=== PATIENT | female | born 1960 | race Caucasian/White ===

== ENCOUNTER 2023-01-19 12:23 | Inpatient (IN) | payer MEDICARE, MEDICAID, SELFPAY ==
[2023-01-19] VITALS (15 sets, daily range): BP systolic 98–112; BP diastolic 40–67; PULSE 90–110; RESP 14–20; TEMP 36.4–36.9; O2SAT 90–96; BMI 57.9
--- NOTE | ~2023-01-19 | XR_ITS ---
EXAMINATION: XR chest 1V portable DATE: 01/19/2023 13:25 INDICATION: Lung infection. TECHNIQUE: A single frontal view of the chest was obtained. COMPARISON: Chest 2 views 12/17/2009 FINDINGS: The patient is rotated to her right. There are mild airspace opacities in right lower lung zone. No pleural effusion or pneumothorax. The heart size is normal. There are old healed right rib f ractures. IMPRESSION: 1. Mild airspace opacities in right lower lung zone, consistent with atelectasis/scarring versus pneu monia. Reviewed, dictated and finalized at location A. BODY SERVICE MECHANIC IMPRESSION: 1. Mild airspace opacities in right lower lung zone, consistent with atelectasi s/scarring versus pneumonia.
--- NOTE | 2023-01-19 12:50 | ED.GENADULT ---
HPI - General Adult General Chief complaint: Unspecified <Charo Allen APRN - Last Filed: 01/19/23 18:11> Stated complaint: bladder/lung infection <Charo Allen APRN - Last Filed: 01/19/23 18:11> Time Seen by Provider: 01/19/23 12:49 <Charo Allen APRN - Last Filed: 01/19/23 18:11> Source: patient and EMS <Charo Allen APRN - Last Filed: 01/19/23 18:11> Mode of arrival: EMS <Charo Allen APRN - Last Filed: 01/19/23 18:11> Limitations: physical limitation and other (hearing impairment ) <Charo Allen APRN - Last Filed: 01/19/23 18:11> History of Present Illness HPI narrative: Patient is a 62 year-old female who presents emergency department the EMS for evaluation having a UTI as well as concerns of pneumonia. her PCP sent her here after getting a urine sample yesterday. The patient states that she has had a productive cough. She has intermittent shortness of breath and pains in her chest even when just lying down she states. She denies any fever or chills. She states she takes pain medication chronically for an injury to her lower leg in the past where she has a scar. She states that she does not typically walk around but she does currently have therapy coming. She is living with her daughter. Denies any known exposure to any illness. She states that it just started the burning when she was urinating today. She denies any dizziness. She states she is very hard of hearing. she denies any history of heart failure. she states she broke out in a rash with PCN. however she has tolerated keflex before. <Charo Allen APRN - Last Filed: 01/19/23 18:11> Related Data Allergies/adverse reactions: Allergies Allergy/AdvReac Type Severity Reaction Status Date / Time adhesive Allergy Mild RASH WITH Unverified 01/19/23 12:42 BANDAIDS AND TAPE ketorolac Allergy Mild CHEST PAIN Unverified 01/19/23 12:42 benzalkonium Allergy Unknown Unknown Unverified 01/19/23 12:42 cyclobenzaprine Allergy Unknown Unknown Verified 01/19/23 12:42 doxycycline Allergy Unknown Unknown Verified 01/19/23 12:42 Penicillins Allergy Unknown Unknown Verified 01/19/23 12:42 Sulfa (Sulfonamide Allergy Unknown Unknown Verified 01/19/23 12:42 Antibiotics) sulfanilamide Allergy Unknown Unknown Verified 01/19/23 12:42 tramadol Allergy Unknown Unknown Unverified 01/19/23 12:42 Molds and Smuts Allergy Intermediate SNEEZING Uncoded 01/19/23 12:42 CYCLOBENZAPRINE HCL Allergy Mild Unknown Uncoded 01/19/23 12:42 Egg Yolk Allergy Mild Unknown Uncoded 01/19/23 12:42 <Charo Allen APRN - Last Filed: 01/19/23 18:11> Review of Systems Review of Systems: CONSTITUTIONAL: Denies fever, chills, or sweats. EYES: Denies visual changes, redness, or discharge. ENT: Denies rhinorrhea, congestion, sore throat, or otalgia. CARDIOVASCULAR: +chest pain intermittently. denies palpitations, or edema. RESPIRATORY: +cough, dyspnea. GASTROINTESTINAL: Denies abdominal pain, nausea, vomiting, or diarrhea. GENITOURINARY: +dysuria. denies hematuria. SKIN: Denies rash or itching. MUSCULOSKELETAL: +chronic leg pain. Denies back pain, or myalgia. NEUROLOGIC: Denies headache, numbness, or weakness. PSYCHIATRIC: Denies anxiety or depression. patient is a poor historian however <Charo Allen APRN - Last Filed: 01/19/23 18:11> All systems reviewed & are unremarkable except as noted in HPI and below <Charo Allen APRN - Last Filed: 01/19/23 18:11> [facility] Past Medical History Medical History: Medical History Anxiety Chronic anticoagulation Chronic back pain Chronically on opiate therapy Hypothyroidism Pulmonary embolism <Charo Allen APRN - Last Filed: 01/19/23 18:11> Surgical History Surgical History: Surgical History History of bariatric surgery <Charo Allen, DUNCAN - Last Fi
[2023-01-19 13:21] LABS: Basophils Percent Auto 0.3 % (0.2-1.2); Eosinophils Absolute Auto 0.4 K/mm3 (0-0.3); Eosinophils Percent Auto 3.4 % (0-4.4); Hematocrit 37.4 % (37.0-47.0); Hemoglobin 11.2 g/dL (12.0-15.0); Immature Granulocyte Absolute 0.05 K/mm3 (0.00-0.031); Immature Granulocyte Percent A 0.5 % (0-0.5); Lymphocytes Absolute Auto 2.36 K/mm3 (0.9-3.2); Lymphocytes Percent Auto 22.3 % (18.3-44.2); Mean Corpuscular HGB Conc 29.9 g/dl (32-36); Mean Corpuscular Hemoglobin 27.2 pg (26-34); Mean Corpuscular Volume 90.8 fl (80-100); Mean Platelet Volume 11.4 fl (7.4-10.4); Monocytes Absolute Auto 0.9 K/mm3 (0.1-0.6); Monocytes Percent Auto 8.8 % (2.6-8.5); Neutrophils Absolute Auto 6.8 K/mm3 (1.3-6.7); Neutrophils Percent Auto 64.7 % (45.5-73.1); Platelet Count Result 285 k/mm3 (150-375); Red Blood Count 4.12 M/mm3 (4.2-5.4); Red Cell Distribution Width 17.8 % (11.5-14.5); White Blood Count 10.6 K/mm3 (4.5-10.0)
[2023-01-19 13:27] LABS: Appearance Urine Turbid (Clear); Bacteria Urine 4+ /hpf; Bilirubin Urine Negative (Negative); Blood Urine 1+ (Negative); Color Urine Dark Yellow (Yellow); Glucose Urine UA Negative (Negative); Ketones Urine Negative (Negative); Leukocyte Esterase Ur 3+ LEU/UL (Negative); Nitrate Urine Negative (Negative); Non Pathogenic Casts 0-2; Protein Urine Trace mg/dL (Negative); RBC Urine 0-2 /hpf (0-2); Specific Grav Ur 1.008 (1.001-1.035); Squamous Epithelial Cell Urine None seen /hpf (Few); pH Urine 8.5 (5.0-9.0)
[2023-01-19 13:30] LABS: Alanine Aminotransferase 26 U/L (6-35); Albumin Level 3.1 g/dL (3.5-5.1); Alkaline Phosphatase 178 U/L (38-126); Anion Gap 4 mmol/L (8-16); Aspartate Amino Transferase 64 U/L (14-36); Bilirubin,Total 0.8 mg/dL (0.2-1.3); Blood Urea Nitrogen 12 mg/dL (7-17); Calcium 8.6 mg/dL (8.4-10.2); Carbon Dioxide 38 mmol/L (22-30); Chloride 83 mmol/L (98-107); Estimated CRCL calculation 117 ml/min; Estimated Glomerular Filt Rate > 60; Glucose 149 mg/dL (65-110); Potassium 3.8 mmol/L (3.4-5.0); Sodium 125 mmol/L (137-145)
[2023-01-19 13:33] LABS: Add Urine Microscopic? YES
[2023-01-19 13:43] LABS: Atypical Lymphocytes Present; Hypochromasia 1+ (NORMAL); Platelet Estimate Adequate (Adequate); Schistocytes None Seen (NORMAL)
[2023-01-19 14:31] LABS: Lactic Acid Reflex 2.5 mmol/L (0.7-2.0)
[2023-01-19 15:25] LABS: Procalcitonin 0.3 ng/mL
--- NOTE | 2023-01-19 15:32 | ECG_ITS ---
Measurements Intervals [place] Rate: 95 P: 66 NE: 174 QRS: 57 QRSD: 95 T: 70 QT: 384 QTc: 484 Interpretive Statements SINUS RHYTHM NORMAL EKG NO PREVIOUS ECG AVAILABLE FOR COMPARISON Electronically Signed On 01-20-2023 13:48:30 LINTER OPERATOR by Basil Santoyo M.D.
[2023-01-19] MEDS: SODIUM CHLORIDE 0.9% IV 1,000 ML 100 ML IV CONT (15:46)
[2023-01-19] MEDS: AZITHROMYCIN 500 MG/NS 250 ML 500 MG/250 ML BAG 250 MG IVPB (16:44)
--- NOTE | 2023-01-19 16:50 | PC.NURSE ---
External catheter placed on patient.
[2023-01-19 17:04] LABS: Magnesium 2.3 mg/dL (1.6-2.3); Phosphorus 3.4 mg/dL (2.5-4.5)
--- NOTE | 2023-01-19 17:08 | PM.IMHP ---
H&P: HPI History of Present Illness Date/Time: 01/19/23 17:30 Chief Complaint: Bladder and lung infection. Narrative: This is a pleasant, chronically debilitated 62-year-old female smoker with history of pulmonary embolism on anticoagulation, chronic obstructive pulmonary disease, hypothyroidism, neuropathy, and anxiety who presented to the emergency department via EMS at the direction of her primary care provider for treatment of bladder and lung infection. The patient provides the following history. She endorses dysuria, subjective fever, nausea, vomiting, and a cough productive of white sputum for the last several days. She saw her doctor for evaluation of these symptoms yesterday and she was told to come to the ER today as her urine looked grossly infected and they were concerned that she had pneumonia as well. She was afebrile on arrival to the ED with stable blood pressures. Labs were significant for WBC count of 10.6, sodium 125, chloride 83, carbon dioxide 38, glucose 149, lactic acid 2.5, troponin less than 0.012, proBNP 75. Urine was turbid with 3+ leukocyte esterase, 11 to 20 WBC, and 4+ bacteria. She tested negative for influenza, RSV, and COVID. Chest x-ray showed mild airspace opacities in right lower lung zone consistent with atelectasis/scarring versus pneumonia. She received a dose of azithromycin and ceftriaxone and she is being admitted in this setting for further treatment and evaluation. Review of Systems Review of Systems: Twelve systems were reviewed. She has become chronically debilitated and is not really walking at this point however therapy has started to come into the home. She recently moved to the area to live with her daughter. She denies sick contacts. Reports having loose stools yesterday however those resolved after she took Imodium. No known history of multidrug resistant organisms. Except as documented, all other systems were reviewed and are negative. [facility] Past Medical History Medical History Anxiety Chronic anticoagulation Chronic back pain Chronic obstructive pulmonary disease Chronically on opiate therapy Hypothyroidism Pulmonary embolism Surgical History Surgical History History of bariatric surgery History of bunionectomy History of cholecystectomy History of open reduction and internal fixation (ORIF) procedure Repair left leg and right hip fractures. Family History Family History (Updated 01/19/23 @ 22:56 by Davina Luis PA-C) Other Family history non-contributory Social History Social History (Updated 01/19/23 @ 22:56 by Davina Luis PA-C) Social History: Surrogate medical decision maker: Alma Moya, daughter. Code status: Full code. Smoking status: Current every day smoker Alcohol intake: never Lack of Transportation: No Lack of Food: Never True Current Housing: I Have Housing Concerned About Future Housing: No Difficulty Paying Gas/Electric Bills: No Difficulty Paying for Meds: No Currently Unemployed: No Education: Decline to Answer Difficulty w/ Childcare or Family Care: Decline to Answer Spiritual care concerns: No Meds Home Medications and Allergies Home Medications Medication Instructions Recorded Confirmed Type apixaban 5 mg tablet (Eliquis) 5 mg PO BID 01/19/23 01/19/23 History budesonide-formoterol HFA 80 2 inh inhalation PRN PRN Shortness 01/19/23 01/19/23 History mcg-4.5 mcg/actuation aerosol Of Breath Or Wheezing inhaler (Symbicort) clonazepam 0.5 mg tablet 0.5 mg PO HS PRN Anxiety 01/19/23 01/19/23 History diphenhydramine HCl 25 mg tablet See Rx Instructions .Route 01/19/23 01/19/23 History .COMPLEX PRN Anxiety duloxetine 60 mg capsule,delayed 60 mg PO DAILY 01/19/23 01/19/23 History release gabapentin 800 mg tablet 800 mg PO TID 01/19/23 01/19/23 History levothyroxine 50 mc
[2023-01-19 17:15] LABS: Troponin I < 0.012 ng/mL (0.000-0.034)
[2023-01-19 17:20] LABS: Reflex Lactic Acid Yes or No Add Lactic
[2023-01-19 17:39] LABS: Influenza A QL RT-PCR Negative (Negative); Influenza B QL RT-PCR Negative (Negative); RSV RNA, RT-PCR Negative (Negative); SARS-CoV-2 RNA PCR Negative (Negative)
--- NOTE | 2023-01-19 18:13 | PC.NURSE ---
This patient, Serenity Moya, was admitted to [facility] Surg Room 330-02. Patient/family oriented to hospital policies and general routines including ID bracelet, bed and alarms, visiting hours, pain management, procedures, bathroom and other care routines, personal items, smoking policy, room service/diet, and visiting hours. Information on how to activate the Rapid Response Team has been discussed. Patient/Family are encouraged to report perceived risks to care and to ask questions if they do not understand what they are told or what they should do.
--- NOTE | 2023-01-19 18:14 | PC.NURSE ---
Admission was done to the best of RN abilities and resources. Patient states that she lives with her daughter and daughter does all of her medications for her. RN called daughter (patient gave RN her daughter's phone number). RN called number and number is not in service. RN looked up patient's contact list in chart and called [facility]. This number was also out of service. Patient is very hard of hearing. Patient states she did not bring any medications with her or a list nor does she knows any medications that she currently takes. RN will attempt to reach out to patient's pharmacy. RN explained to patient that these numbers are not in service. Patient responded with okay .
--- NOTE | 2023-01-19 18:36 | PC.NURSE ---
field gauger and RN reviewed external medication history and confirmed medications that were filled within the last 30 days. Tomorrow RN will need to call pharmacy or primary care and obtain medication list if possible.
--- NOTE | 2023-01-19 18:51 | PC.NURSE ---
RN spoke with daughter Brenda via telephone and confirmed medications with her.
[2023-01-19] MEDS: oxyCODONE/ACETAMINOPHEN (*CRX) 5-325 MG TABLET 1 TABLET PO (20:03)
[2023-01-19 21:35] LABS: Lactic Acid 1.5 mmol/L (0.7-2.0)
[2023-01-19 21:46] LABS: NT Pro B Type Natriuretic Pept 75 pg/mL (19.9-100)
[2023-01-19 23:11] LABS: Anion Gap 4 mmol/L (8-16); Blood Urea Nitrogen 13 mg/dL (7-17); Calcium 8.9 mg/dL (8.4-10.2); Carbon Dioxide 38 mmol/L (22-30); Chloride 87 mmol/L (98-107); Estimated CRCL calculation 104 ml/min; Estimated Glomerular Filt Rate > 60; Glucose 143 mg/dL (65-110); Potassium 3.6 mmol/L (3.4-5.0); Sodium 129 mmol/L (137-145)
[2023-01-20] VITALS (8 sets, daily range): BP systolic 88–117; BP diastolic 46–68; PULSE 82–109; RESP 12–22; TEMP 36.4–36.9; O2SAT 92–98
[2023-01-20] MEDS: APIXABAN 5 MG TABLET PO ×3 (00:18→21:13)
[2023-01-20] MEDS: traZODone HCL 50 MG TABLET PO ×2 (00:18→21:13)
[2023-01-20] MEDS: METOPROLOL TARTRATE 12.5 MG TABLET PO ×3 (00:18→21:13)
[2023-01-20] MEDS: OLANZapine 5 MG TABLET 20 MG PO ×2 (00:19→21:12)
[2023-01-20] MEDS: oxyCODONE/ACETAMINOPHEN (*CRX) 5-325 MG TABLET 1 TABLET PO (06:29)
[2023-01-20] MEDS: LEVOTHYROXINE SODIUM 50 MCG TABLET PO (06:29)
[2023-01-20 06:34] LABS: Hematocrit 36.4 % (37.0-47.0); Hemoglobin 10.6 g/dL (12.0-15.0); Mean Corpuscular HGB Conc 29.1 g/dl (32-36); Mean Corpuscular Hemoglobin 26.5 pg (26-34); Mean Platelet Volume 10.1 fl (7.4-10.4); Platelet Count Result 331 k/mm3 (150-375); Red Cell Distribution Width 18.1 % (11.5-14.5); White Blood Count 8.4 K/mm3 (4.5-10.0)
[2023-01-20 06:34] LABS: Sodium Urine Random 8 meq/L
[2023-01-20 06:45] LABS: Blood Urea Nitrogen 14 mg/dL (7-17); Calcium 8.9 mg/dL (8.4-10.2); Carbon Dioxide > 40 mmol/L (22-30); Chloride 88 mmol/L (98-107); Estimated CRCL calculation 83 ml/min; Estimated Glomerular Filt Rate 57; Glucose 134 mg/dL (65-110); Magnesium 2.2 mg/dL (1.6-2.3); Potassium 3.7 mmol/L (3.4-5.0); Sodium 131 mmol/L (137-145)
[2023-01-20] MEDS: TIZANIDINE HCL 4 MG TABLET PO (08:06)
[2023-01-20] MEDS: GABAPENTIN 400 MG CAPSULE 800 MG PO (08:07)
[2023-01-20] MEDS: DULoxetine HCL 60 MG CAPSULE.DR PO (08:07)
[2023-01-20] MEDS: ZINC SULFATE 220 MG CAPSULE PO (08:07)
[2023-01-20] MEDS: PANTOPRAZOLE 40 MG TABLET PO (08:07)
--- NOTE | 2023-01-20 08:17 | PM.IMPN ---
Progress Note: A&P Assessment and Plan (1) Hyponatremia: Code(s): E87.1 - Hypo-osmolality and hyponatremia Status: Acute (2) Urinary tract infection: Code(s): N39.0 - Urinary tract infection, site not specified Status: Acute (3) Abnormal chest x-ray: Code(s): R93.89 - Abnormal findings on diagnostic imaging of other specified body structures Status: Acute (4) Chronic obstructive pulmonary disease: Code(s): J44.9 - Chronic obstructive pulmonary disease, unspecified Status: Acute (5) Chronic anticoagulation: Code(s): Z79.01 - nursing home (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 of anticoagulants Status: Acute (6) Hypothyroidism: Code(s): E03.9 - Hypothyroidism, unspecified Status: Acute (7) Anxiety: Code(s): F41.9 - Anxiety disorder, unspecified Status: Acute (8) Chronically on opiate therapy: Code(s): Z79.891 - nursing home (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 of opiate analgesic Status: Acute Plan This is a pleasant, chronically debilitated 62-year-old female smoker with history of pulmonary embolism on anticoagulation, chronic obstructive pulmonary disease, hypothyroidism, neuropathy, and anxiety who presented to the emergency department via EMS at the direction of her primary care provider for treatment of bladder and lung infection. The patient provides the following history. She endorses dysuria, subjective fever, nausea, vomiting, and a cough productive of white sputum for the last several days. (1) Urinary tract infection: ?Code(s): N39.0 - Urinary tract infection, site not specified ?Status:?Acute ?Assessment and Plan: UA is positive for leukocyte esterase, 4+ bacteria, and 11 to 20 WBC. Continue ceftriaxone 1 g Q 24 hours pending urine culture. (2) Hyponatremia: ?Code(s): E87.1 - Hypo-osmolality and hyponatremia ?Status:?Acute ?Assessment and Plan: Baseline unclear she has not had labs drawn at this facility before. Looks a bit dry on exam thus she was started on normal saline in the ED. Does not appear volume overload by any means. Could be medication related or due to chronic pain as well. Check TSH, urine and serum osmolalities, and urine sodium. (3) Abnormal chest x-ray: ?Code(s): R93.89 - Abnormal findings on diagnostic imaging of other specified body structures ?Status:?Acute ?Assessment and Plan: Chest x-ray shows mild airspace opacities in the right lower lung which could be atelectasis/scarring versus pneumonia. Continue azithromycin 500 mg daily and ceftriaxone 1 g daily. Attempt sputum for culture and check urinary antigens as well as mycoplasma IgM. (4) Chronic obstructive pulmonary disease: ?Code(s): J44.9 - Chronic obstructive pulmonary disease, unspecified ?Status:?Acute ?Assessment and Plan: No evidence of acute exacerbation. Continue inhalers as prescribed. (5) Chronic anticoagulation: ?Code(s): Z79.01 - roasterman (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 of anticoagulants ?Status:?Acute ?Assessment and Plan: Continue apixaban 5 mg b.i.d. for history of pulmonary embolism. (6) Hypothyroidism: ?Code(s): E03.9 - Hypothyroidism, unspecified ?Status:?Acute ?Assessment and Plan: Continue levothyroxine and check TSH. (7) Chronically on opiate therapy: ?Code(s): Z79.891 - nursing home (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 of opiate analgesic ?Status:?Acute ?Assessment and Plan: Continue oxycodone 5-325 mg p.r.n. for chronic pain syndrome. (8) Anxiety: ?Code(s): F41.9 - Anxiety disorder, unspecified ?Status:?Acute ?Assessment and Plan: Continue duloxetine and p.r.n. clonazepam. Depending on how our sodium trans, may need to hold duloxetine. Subjective Date/time seen: 01/20/23 08:17 Interval history: I saw and examined patient today. Patient was somnolent, oriented, failed tired. Patient denies chest pain, abdomen pain nausea vomiting. Patient has
--- NOTE | 2023-01-20 13:54 | PCOTNOTE ---
Attempted to see pt. for occupational therapy evaluation. Pt. unable to consistently maintain alertness despite repeated attempts to arouse. Nursing aware and stated this has been consistent state of alertness for pt. all day and may be medication related. Following.
--- NOTE | 2023-01-20 14:29 | PCPTNOTE ---
Attempted PT evaluation, pt unarousable. PER OT: Nursing aware and stated this has been consistent state of alertness for pt. all day and may be medication related. Will follow.
[2023-01-20] MEDS: AZITHROMYCIN 500 MG/NS 250 ML 500 MG/250 ML BAG 250 MG IVPB (16:35)
[2023-01-20] MEDS: ACETAMINOPHEN 325 MG TABLET 650 MG PO (16:42)
[2023-01-20] MEDS: FLUTICASONE/SALMETEROL 45-21 MCG INHALER 1 PUFF 2 PUFF INHALATION (20:38)
[2023-01-21] VITALS (7 sets, daily range): BP systolic 97–105; BP diastolic 53–60; PULSE 77–91; RESP 14–20; TEMP 36.4–36.8; O2SAT 92–97; BMI 10.0
[2023-01-21] MEDS: ACETAMINOPHEN 325 MG TABLET 650 MG PO (03:50)
[2023-01-21] MEDS: LEVOTHYROXINE SODIUM 50 MCG TABLET PO (05:40)
[2023-01-21] MEDS: oxyCODONE/ACETAMINOPHEN (*CRX) 5-325 MG TABLET 1 TABLET PO (05:40)
[2023-01-21] MEDS: TIZANIDINE HCL 4 MG TABLET PO (07:59)
[2023-01-21] MEDS: GABAPENTIN 400 MG CAPSULE 800 MG PO (08:00)
[2023-01-21] MEDS: ZINC SULFATE 220 MG CAPSULE PO (08:00)
[2023-01-21] MEDS: METOPROLOL TARTRATE 12.5 MG TABLET PO (08:00)
[2023-01-21] MEDS: DULoxetine HCL 60 MG CAPSULE.DR PO (08:00)
[2023-01-21] MEDS: PANTOPRAZOLE 40 MG TABLET PO (08:00)
[2023-01-21] MEDS: APIXABAN 5 MG TABLET PO (08:00)
--- NOTE | 2023-01-21 08:47 | PM.IMPN ---
Progress Note: A&P Assessment and Plan (1) Hyponatremia: Code(s): E87.1 - Hypo-osmolality and hyponatremia Status: Acute (2) Urinary tract infection: Code(s): N39.0 - Urinary tract infection, site not specified Status: Acute (3) Abnormal chest x-ray: Code(s): R93.89 - Abnormal findings on diagnostic imaging of other specified body structures Status: Acute (4) Chronic obstructive pulmonary disease: Code(s): J44.9 - Chronic obstructive pulmonary disease, unspecified Status: Acute (5) Chronic anticoagulation: Code(s): Z79.01 - custodial (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 of anticoagulants Status: Acute (6) Hypothyroidism: Code(s): E03.9 - Hypothyroidism, unspecified Status: Acute (7) Anxiety: Code(s): F41.9 - Anxiety disorder, unspecified Status: Acute (8) Chronically on opiate therapy: Code(s): Z79.891 - custodial (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 of opiate analgesic Status: Acute Plan This is a pleasant, chronically debilitated 62-year-old female smoker with history of pulmonary embolism on anticoagulation, chronic obstructive pulmonary disease, hypothyroidism, neuropathy, and anxiety who presented to the emergency department via EMS at the direction of her primary care provider for treatment of bladder and lung infection. The patient provides the following history. She endorses dysuria, subjective fever, nausea, vomiting, and a cough productive of white sputum for the last several days. (1) Urinary tract infection: ?Code(s): N39.0 - Urinary tract infection, site not specified ?Status:?Acute ?Assessment and Plan: UA is positive for leukocyte esterase, 4+ bacteria, and 11 to 20 WBC. Continue ceftriaxone 1 g Q 24 hours E coli is growing from urine culture. Pending susceptibility (2) Hyponatremia: ?Code(s): E87.1 - Hypo-osmolality and hyponatremia ?Status:?Acute ?Assessment and Plan: Baseline unclear she has not had labs drawn at this facility before. Looks a bit dry on exam thus she was started on normal saline in the ED. Does not appear volume overload by any means. Could be medication related or due to chronic pain as well. Check TSH wnl, urine and serum osmolalities, and urine sodium. Add sodium chloride 1 g t.i.d. p.o. Sodium level is trending up, (3) Abnormal chest x-ray: ?Code(s): R93.89 - Abnormal findings on diagnostic imaging of other specified body structures ?Status:?Acute ?Assessment and Plan: Chest x-ray shows mild airspace opacities in the right lower lung which could be atelectasis/scarring versus pneumonia. Continue azithromycin 500 mg daily and ceftriaxone 1 g daily. Attempt sputum for culture and check urinary antigens as well as mycoplasma IgM. (4) Chronic obstructive pulmonary disease: ?Code(s): J44.9 - Chronic obstructive pulmonary disease, unspecified ?Status:?Acute ?Assessment and Plan: No evidence of acute exacerbation. Continue inhalers as prescribed. (5) Chronic anticoagulation: ?Code(s): Z79.01 - custodial (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 of anticoagulants ?Status:?Acute ?Assessment and Plan: Continue apixaban 5 mg b.i.d. for history of pulmonary embolism. (6) Hypothyroidism: ?Code(s): E03.9 - Hypothyroidism, unspecified ?Status:?Acute ?Assessment and Plan: Continue levothyroxine and check TSH. (7) Chronically on opiate therapy: ?Code(s): Z79.891 - termite helper (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 of opiate analgesic ?Status:?Acute ?Assessment and Plan: Continue oxycodone 5-325 mg p.r.n. for chronic pain syndrome. (8) Anxiety: ?Code(s): F41.9 - Anxiety disorder, unspecified ?Status:?Acute ?Assessment and Plan: Continue duloxetine and p.r.n. clonazepam. Depending on how our sodium trans, may need to hold duloxetine. Consult PT OT critical care technician for evaluation and assisting placement, patient has BMI 57, has difficulty to ambulate.
[2023-01-21] MEDS: FLUTICASONE/SALMETEROL 45-21 MCG INHALER 1 PUFF 2 PUFF INHALATION ×2 (08:57→21:55)
[2023-01-21] MEDS: SODIUM CHLORIDE 500 MG TABLET 1000 MG PO ×2 (13:34→16:18)
[2023-01-21] MEDS: GABAPENTIN 300 MG CAPSULE PO ×2 (13:34→16:18)
[2023-01-21] MEDS: AZITHROMYCIN 500 MG/NS 250 ML 500 MG/250 ML BAG 250 MG IVPB (16:17)
[2023-01-22] VITALS (8 sets, daily range): BP systolic 98–106; BP diastolic 52–55; PULSE 84–101; RESP 20; TEMP 36.5–36.6; O2SAT 93–97
[2023-01-22] MEDS: METOPROLOL TARTRATE 12.5 MG TABLET PO ×3 (00:37→21:03)
[2023-01-22] MEDS: oxyCODONE/ACETAMINOPHEN (*CRX) 5-325 MG TABLET 1 TABLET PO ×5 (00:37→21:02)
[2023-01-22] MEDS: APIXABAN 5 MG TABLET PO ×3 (00:37→21:03)
[2023-01-22] MEDS: traZODone HCL 50 MG TABLET PO (00:39)
[2023-01-22] MEDS: LEVOTHYROXINE SODIUM 50 MCG TABLET PO (04:59)
[2023-01-22] MEDS: DULoxetine HCL 60 MG CAPSULE.DR PO (08:10)
[2023-01-22] MEDS: PANTOPRAZOLE 40 MG TABLET PO (08:10)
[2023-01-22] MEDS: GABAPENTIN 300 MG CAPSULE PO ×3 (08:10→16:41)
[2023-01-22] MEDS: SODIUM CHLORIDE 500 MG TABLET 1000 MG PO ×2 (08:12→11:46)
[2023-01-22] MEDS: ZINC SULFATE 220 MG CAPSULE PO (08:12)
--- NOTE | 2023-01-22 08:12 | PM.IMPN ---
Progress Note: A&P Assessment and Plan (1) Hyponatremia: Code(s): E87.1 - Hypo-osmolality and hyponatremia Status: Acute (2) Urinary tract infection: Code(s): N39.0 - Urinary tract infection, site not specified Status: Acute (3) Abnormal chest x-ray: Code(s): R93.89 - Abnormal findings on diagnostic imaging of other specified body structures Status: Acute (4) Chronic obstructive pulmonary disease: Code(s): J44.9 - Chronic obstructive pulmonary disease, unspecified Status: Acute (5) Chronic anticoagulation: Code(s): Z79.01 - nursing home (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 of anticoagulants Status: Acute (6) Hypothyroidism: Code(s): E03.9 - Hypothyroidism, unspecified Status: Acute (7) Anxiety: Code(s): F41.9 - Anxiety disorder, unspecified Status: Acute (8) Chronically on opiate therapy: Code(s): Z79.891 - nursing home (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 of opiate analgesic Status: Acute Plan This is a pleasant, chronically debilitated 62-year-old female smoker with history of pulmonary embolism on anticoagulation, chronic obstructive pulmonary disease, hypothyroidism, neuropathy, and anxiety who presented to the emergency department via EMS at the direction of her primary care provider for treatment of bladder and lung infection. The patient provides the following history. She endorses dysuria, subjective fever, nausea, vomiting, and a cough productive of white sputum for the last several days. (1) Urinary tract infection: ?Code(s): N39.0 - Urinary tract infection, site not specified ?Status:?Acute ?Assessment and Plan: UA is positive for leukocyte esterase, 4+ bacteria, and 11 to 20 WBC. Continue ceftriaxone 1 g Q 24 hours E coli is growing from urine culture. susceptibility to ceftriaxone (2) Hyponatremia: ?Code(s): E87.1 - Hypo-osmolality and hyponatremia ?Status:?Acute ?Assessment and Plan: Baseline unclear she has not had labs drawn at this facility before. Looks a bit dry on exam thus she was started on normal saline in the ED. Does not appear volume overload by any means. Could be medication related or due to chronic pain as well. Check TSH wnl, urine and serum osmolalities, and urine sodium. Add sodium chloride 1 g t.i.d. p.o. Sodium level is trending down to 126 increase to NCL 2g bid po Urine osmolarity is pending Possible resulting from medication of trazodone and Cymbalta. Discontinue trazodone Cymbalta Follow-up BMP tomorrow (3) Abnormal chest x-ray: ?Code(s): R93.89 - Abnormal findings on diagnostic imaging of other specified body structures ?Status:?Acute ?Assessment and Plan: Chest x-ray shows mild airspace opacities in the right lower lung which could be atelectasis/scarring versus pneumonia. Continue azithromycin 500 mg daily and ceftriaxone 1 g daily. Attempt sputum for culture and check urinary antigens as well as mycoplasma IgM. (4) Chronic obstructive pulmonary disease: ?Code(s): J44.9 - Chronic obstructive pulmonary disease, unspecified ?Status:?Acute ?Assessment and Plan: No evidence of acute exacerbation. Continue inhalers as prescribed. (5) Chronic anticoagulation: ?Code(s): Z79.01 - exterminator termite (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 of anticoagulants ?Status:?Acute ?Assessment and Plan: Continue apixaban 5 mg b.i.d. for history of pulmonary embolism. (6) Hypothyroidism: ?Code(s): E03.9 - Hypothyroidism, unspecified ?Status:?Acute ?Assessment and Plan: Continue levothyroxine and check TSH. (7) Chronically on opiate therapy: ?Code(s): Z79.891 - nursing home (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 of opiate analgesic ?Status:?Acute ?Assessment and Plan: Continue oxycodone 5-325 mg p.r.n. for chronic pain syndrome. (8) Anxiety: ?Code(s): F41.9 - Anxiety disorder, unspecified ?Status:?Acute ?Assessment and Plan: Continue duloxetine and p.r.n. clona
[2023-01-22 08:57] LABS: Basophils Percent Auto 0.3 % (0.2-1.2); Eosinophils Absolute Auto 0.4 K/mm3 (0-0.3); Eosinophils Percent Auto 4.8 % (0-4.4); Hematocrit 33.8 % (37.0-47.0); Hemoglobin 10.1 g/dL (12.0-15.0); Immature Granulocyte Absolute 0.01 K/mm3 (0.00-0.031); Immature Granulocyte Percent A 0.1 % (0-0.5); Lymphocytes Absolute Auto 3.25 K/mm3 (0.9-3.2); Lymphocytes Percent Auto 42.2 % (18.3-44.2); Mean Corpuscular HGB Conc 29.9 g/dl (32-36); Mean Corpuscular Hemoglobin 26.9 pg (26-34); Mean Corpuscular Volume 89.9 fl (80-100); Monocytes Absolute Auto 0.8 K/mm3 (0.1-0.6); Monocytes Percent Auto 10.5 % (2.6-8.5); Neutrophils Absolute Auto 3.3 K/mm3 (1.3-6.7); Neutrophils Percent Auto 42.1 % (45.5-73.1); Platelet Count Result 315 k/mm3 (150-375); Red Blood Count 3.76 M/mm3 (4.2-5.4); Red Cell Distribution Width 17.5 % (11.5-14.5); White Blood Count 7.7 K/mm3 (4.5-10.0)
[2023-01-22 09:12] LABS: Anion Gap 0 mmol/L (8-16); Blood Urea Nitrogen 15 mg/dL (7-17); Calcium 8.6 mg/dL (8.4-10.2); Carbon Dioxide 39 mmol/L (22-30); Chloride 87 mmol/L (98-107); Estimated CRCL calculation 103 ml/min; Estimated Glomerular Filt Rate > 60; Glucose 108 mg/dL (65-110); Potassium 4.2 mmol/L (3.4-5.0); Sodium 126 mmol/L (137-145)
[2023-01-22] MEDS: FLUTICASONE/SALMETEROL 45-21 MCG INHALER 1 PUFF 2 PUFF INHALATION ×2 (10:37→20:42)
[2023-01-22 10:44] LABS: Anisocytosis 1+ (NORMAL); Hypochromasia 1+ (NORMAL); Platelet Estimate Adequate (Adequate); Schistocytes None Seen (NORMAL)
[2023-01-22] MEDS: SODIUM CHLORIDE 500 MG TABLET 2000 MG PO ×2 (13:37→16:41)
[2023-01-22] MEDS: AZITHROMYCIN 500 MG/NS 250 ML 500 MG/250 ML BAG 250 MG IVPB (16:40)
[2023-01-22] MEDS: OLANZapine 5 MG TABLET 20 MG PO (21:03)
[2023-01-22] MEDS: clonazePAM (*CRX) 0.5 MG TABLET PO (21:03)
[2023-01-23] MEDS: oxyCODONE/ACETAMINOPHEN (*CRX) 5-325 MG TABLET 1 TABLET PO ×3 (03:05→12:08)
[2023-01-23 04:44] LABS: Legionella pneumophila Ag Ur Not Detected (Not Detected)
[2023-01-23] MEDS: LEVOTHYROXINE SODIUM 50 MCG TABLET PO (05:44)
[2023-01-23 06:00] VITALS: BP 117/67; PULSE 93; RESP 20; TEMP 36.5; O2SAT 96
[2023-01-23 06:21] LABS: Basophils Percent Auto 0.3 % (0.2-1.2); Eosinophils Absolute Auto 0.3 K/mm3 (0-0.3); Eosinophils Percent Auto 4.5 % (0-4.4); Hematocrit 31.9 % (37.0-47.0); Hemoglobin 9.4 g/dL (12.0-15.0); Immature Granulocyte Absolute 0.01 K/mm3 (0.00-0.031); Immature Granulocyte Percent A 0.2 % (0-0.5); Lymphocytes Absolute Auto 2.04 K/mm3 (0.9-3.2); Lymphocytes Percent Auto 30.9 % (18.3-44.2); Mean Corpuscular HGB Conc 29.5 g/dl (32-36); Mean Corpuscular Hemoglobin 26.9 pg (26-34); Mean Corpuscular Volume 91.4 fl (80-100); Monocytes Absolute Auto 0.8 K/mm3 (0.1-0.6); Monocytes Percent Auto 11.8 % (2.6-8.5); Neutrophils Absolute Auto 3.5 K/mm3 (1.3-6.7); Neutrophils Percent Auto 52.3 % (45.5-73.1); Platelet Count Result 266 k/mm3 (150-375); Red Blood Count 3.49 M/mm3 (4.2-5.4); Red Cell Distribution Width 17.2 % (11.5-14.5); White Blood Count 6.6 K/mm3 (4.5-10.0)
[2023-01-23 06:27] LABS: Anion Gap 6 mmol/L (8-16); Blood Urea Nitrogen 12 mg/dL (7-17); Calcium 8.4 mg/dL (8.4-10.2); Carbon Dioxide 34 mmol/L (22-30); Chloride 88 mmol/L (98-107); Estimated CRCL calculation 103 ml/min; Estimated Glomerular Filt Rate > 60; Glucose 222 mg/dL (65-110); Potassium 3.6 mmol/L (3.4-5.0); Sodium 128 mmol/L (137-145)
[2023-01-23 08:00] VITALS: O2SAT 96
[2023-01-23] MEDS: GABAPENTIN 300 MG CAPSULE PO ×2 (08:08→12:07)
[2023-01-23] MEDS: APIXABAN 5 MG TABLET PO (08:09)
[2023-01-23] MEDS: SODIUM CHLORIDE 500 MG TABLET 2000 MG PO ×2 (08:09→12:07)
[2023-01-23] MEDS: PANTOPRAZOLE 40 MG TABLET PO (08:09)
[2023-01-23] MEDS: METOPROLOL TARTRATE 12.5 MG TABLET PO (08:09)
[2023-01-23] MEDS: ZINC SULFATE 220 MG CAPSULE PO (08:09)
--- NOTE | 2023-01-23 08:40 | PM.IMPN ---
Progress Note: A&P Assessment and Plan (1) Hyponatremia: Code(s): E87.1 - Hypo-osmolality and hyponatremia Status: Acute (2) Urinary tract infection: Code(s): N39.0 - Urinary tract infection, site not specified Status: Acute (3) Abnormal chest x-ray: Code(s): R93.89 - Abnormal findings on diagnostic imaging of other specified body structures Status: Acute (4) Chronic obstructive pulmonary disease: Code(s): J44.9 - Chronic obstructive pulmonary disease, unspecified Status: Acute (5) Chronic anticoagulation: Code(s): Z79.01 - custodial (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 of anticoagulants Status: Acute (6) Hypothyroidism: Code(s): E03.9 - Hypothyroidism, unspecified Status: Acute (7) Anxiety: Code(s): F41.9 - Anxiety disorder, unspecified Status: Acute (8) Chronically on opiate therapy: Code(s): Z79.891 - custodial (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 of opiate analgesic Status: Acute Plan This is a pleasant, chronically debilitated 62-year-old female smoker with history of pulmonary embolism on anticoagulation, chronic obstructive pulmonary disease, hypothyroidism, neuropathy, and anxiety who presented to the emergency department via EMS at the direction of her primary care provider for treatment of bladder and lung infection. The patient provides the following history. She endorses dysuria, subjective fever, nausea, vomiting, and a cough productive of white sputum for the last several days. (1) Urinary tract infection: ?Code(s): N39.0 - Urinary tract infection, site not specified ?Status:?Acute ?Assessment and Plan: UA is positive for leukocyte esterase, 4+ bacteria, and 11 to 20 WBC. Continue ceftriaxone 1 g Q 24 hours E coli is growing from urine culture. susceptibility to ceftriaxone (2) Hyponatremia: ?Code(s): E87.1 - Hypo-osmolality and hyponatremia ?Status:?Acute ?Assessment and Plan: Baseline unclear she has not had labs drawn at this facility before. Looks a bit dry on exam thus she was started on normal saline in the ED. Does not appear volume overload by any means. Could be medication related or due to chronic pain as well. Check TSH wnl, urine and serum osmolalities, and urine sodium. Add sodium chloride 1 g t.i.d. p.o. Sodium level is trending down to 126 increase to NCL 2g bid po Urine osmolarity is pending Possible resulting from medication of trazodone and Cymbalta. Discontinue trazodone Cymbalta Follow-up BMP sodium 128 Will hold trazodone and Cymbalta and discharge, provide sodium chloride tablet p.o. Patient needs see primary care doctor in 1 week to evaluate electrolyte level, resume medications per primary care doctor (3) Abnormal chest x-ray: ?Code(s): R93.89 - Abnormal findings on diagnostic imaging of other specified body structures ?Status:?Acute ?Assessment and Plan: Chest x-ray shows mild airspace opacities in the right lower lung which could be atelectasis/scarring versus pneumonia. Received azithromycin 500 mg daily and ceftriaxone 1 g daily since 01/20 Attempt sputum for culture and check urinary antigens: Legionella pneumonia negative, mycoplasma IgM still pending (4) Chronic obstructive pulmonary disease: ?Code(s): J44.9 - Chronic obstructive pulmonary disease, unspecified ?Status:?Acute ?Assessment and Plan: No evidence of acute exacerbation. Continue inhalers as prescribed. (5) Chronic anticoagulation: ?Code(s): Z79.01 - custodial (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 of anticoagulants ?Status:?Acute ?Assessment and Plan: Continue apixaban 5 mg b.i.d. for history of pulmonary embolism. 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
--- NOTE | 2023-01-23 08:53 | PM.DS ---
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 ?Status:?Acute (6) Hypothyroidism: ?Code(s): E03.9 - Hypothyroidism, unspecified ?Status:?Acute (7) Anxiety: ?Code(s): F41.9 - Anxiety disorder, unspecified ?Status:?Acute (8) Chronically on opiate therapy: ?Code(s): Z79.891 - 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 (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 of opiate analgesic ?Status:?Acute DS: Discharge Diagnosis Discharge Diagnosis (1) Hyponatremia: Code(s): E87.1 - Hypo-osmolality and hyponatremia Status: Acute (2) Urinary tract infection: Code(s): N39.0 - Urinary tract infection, site not specified Status: Acute (3) Abnormal chest x-ray: Code(s): R93.89 - Abnormal findings on diagnostic imaging of other specified body structures Status: Acute (4) Chronic obstructive pulmonary disease: Code(s): J44.9 - Chronic obstructive pulmonary disease, unspecified Status: Acute (5) Chronic anticoagulation: Code(s): Z79.01 - correction (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 of anticoagulants Status: Acute (6) Hypothyroidism: Code(s): E03.9 - Hypothyroidism, unspecified Status: Acute (7) Anxiety: Code(s): F41.9 - Anxiety disorder, unspecified Status: Acute (8) Chronically on opiate therapy: Code(s): Z79.891 - 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 The patient provides the following history. She endorses dysuria, subjective fever, nausea, vomiting, and a cough productive of white sputum for the last several days. (1) Urinary tract infection: ?Code(s): N39.0 - Urinary tract infection, site not specified ?Status:?Acute ?Assessment and Plan: UA is positive for leukocyte esterase, 4+ bacteria, and 11 to 20 WBC. Continue ceftriaxone 1 g Q 24 hours E coli is growing from urine culture. susceptibility to ceftriaxone (2) Hyponatremia: ?Code(s): E87.1 - Hypo-osmolality and hyponatremia ?Status:?Acute ?Assessment and Plan: Baseline unclear she has not had labs drawn at this facility before. Looks a bit dry on exam thus she was started on normal saline in the ED. Does not appear volume overload by any means. Could be medication related or due to chronic pain as well. Check TSH wnl, urine and serum osmolalities, and urine sodium. Add sodium chloride 1 g t.i.d. p.o. Sodium level is trending down to 126 increase to NCL 2g bid po Urine osmolarity is pending Possible resulting from medication of trazodone and Cymbalta. Discontinue trazodone Cymbalta Follow-up BMP sodium 128 Will hold trazodone and Cymbalta and discharge, provide sodium chloride tablet p.o. Patient needs see primary care doctor in 1 week to evaluate electrolyte level, resume medications per primary care doctor (3) Abnormal chest x-ray: ?Code(s): R93.89 - Abnormal findings on diagnostic imaging of other specified body structures ?Status:?Acute ?Assessment and Zohra
[2023-01-23 09:15] VITALS: PULSE 98; O2SAT 87
[2023-01-23 09:20] VITALS: PULSE 98; O2SAT 94
[2023-01-23 09:30] VITALS: PULSE 97; O2SAT 92
[2023-01-23 09:40] VITALS: PULSE 96; O2SAT 93
--- NOTE | 2023-01-23 09:58 | HOMEO2EVAL ---
Evaluation was performed at [facility] Home Oxygen Evaluation RC: Home Oxygen (O2) Evaluation Start: 01/23/23 09:11 Freq: ONCE Status: Active Protocol: RPE Activity Type Activity Date Activity User E-sign Co-sign Detail Recorded Client Recorded Date Recorded By Document 01/23/23 09:15 PK [email or web address] 01/23/23 09:58 PK Document 01/23/23 09:20 PK [email or web address] 01/23/23 09:58 PK Document 01/23/23 09:30 PK [email or web address] 01/23/23 09:58 [facility] Document 01/23/23 09:40 PK [email or web address] 01/23/23 09:58 PK 01/23/23 01/23/23 01/23/23 09:15 09:20 09:30 Home O2 Evaluation [Oxygen] -Test Phase Resting Resting Exercise -Oxygen Delivery Room Air Nasal Cannula Nasal Cannula -Oxygen Flow Rate (L/min) 1 -Fraction of Inspired Oxygen (%) 1 [Pulse Oximetry] -Pulse Oximetry (90-100 %) 87 L 94 92 [Pulse Rate] -Pulse Rate (60-100 beats/min) 98 98 97 [Evaluation] -Activity Tolerance Good [Charges] -Evaluation Charges O2 Evaluation by Pulmonary 01/23/23 09:40 Home O2 Evaluation [Oxygen] -Test Phase Resting -Oxygen Delivery Nasal Cannula -Oxygen Flow Rate (L/min) 1 -Fraction of Inspired Oxygen (%) [Pulse Oximetry] -Pulse Oximetry (90-100 %) 93 [Pulse Rate] -Pulse Rate (60-100 beats/min) 96 [Evaluation] -Activity Tolerance [Charges] -Evaluation Charges
--- NOTE | 2023-01-23 10:00 | PCRCNOTE ---
HOME O2 EVAL COMPLETE. PATIENT REQUIRES 1LPM WITH REST AND ACTIVITY. RN NOTIFIED. HOME O2 SET UP WITH [facility]
[2023-01-23 15:36] LABS: Pneumococcal Antigen Urine Not Detected (Not Detected)
[2023-01-23 21:21] LABS: Osmolality, Urine 237 mOsm/kg (50-1200)
[2023-01-24 14:30] LABS: Mycoplasma IgM Antibody Titer 81 U/mL (<770)
== END 2023-01-23 13:50 | disposition home health service (06) | DRG 689 ==
LOC: ANHED 17:00 → ANH3MEDSUR 17:50
PROVIDERS: Physician Assistant; Admitting Provider Hospitalist; Emergency Provider Nurse Practitioner; Visit Provider Hospitalist
DX: N39.0 Urinary tract infection, site not specified (principal); J18.9 Pneumonia, unspecified organism; E87.1 Hypo-osmolality and hyponatremia; J44.0 Chronic obstructive pulmonary disease with (acute) lower respiratory infection; Z68.43 Body mass index [BMI] 50.0-59.9, adult; E03.9 Hypothyroidism, unspecified; M54.9 Dorsalgia, unspecified; G89.29 Other chronic pain; G62.9 Polyneuropathy, unspecified; F17.210 Nicotine dependence, cigarettes, uncomplicated; F41.9 Anxiety disorder, unspecified; Z20.822 Contact with and (suspected) exposure to COVID-19; Z79.01 Long term (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 of anticoagulants; Z79.891 Long term (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 of opiate analgesic; Z86.711 Personal history of pulmonary embolism; Z98.84 Bariatric surgery status; E66.01 Morbid (severe) obesity due to excess calories
CPT/HCPCS: 36415; 71045; 80048; 80053; 81001; 82570; 83605; 83735; 83880; 83930; 83935; 84100; 84145; 84300; 84443; 84484; 85025; 85027; 86738; 87040; 87070; 87077; 87086; 87186; 87205; 87449; 87637; 87899; 93005; 94618; 94640; 96365; 96375; 97161; 97166; 99285; A9270; J0456; J0696; J7030

== ENCOUNTER 2023-02-04 14:37 | Emergency (ER) | payer MEDICARE, MEDICAID, SELFPAY ==
[2023-02-04] VITALS (23 sets, daily range): BP systolic 97–121; BP diastolic 59–71; PULSE 80–116; RESP 13–28; TEMP 36.7; O2SAT 95–100
--- NOTE | 2023-02-04 15:25 | ED.FEMALEGU ---
HPI - Female Genitourinary General Chief complaint: Urogenital-Female Stated complaint: painful urination History of Present Illness HPI Narrative: 62-year-old female present to emergency department for evaluation of urinary retention. Patient states that she had increased difficulty urinating last night and it has continued throughout the day today. Patient does report a prior history of urinary retention. Related Data Home Medications Medication Instructions Recorded Confirmed apixaban 5 mg tablet (Eliquis) 5 mg PO BID 01/19/23 01/19/23 budesonide-formoterol HFA 80 2 inh inhalation PRN PRN Shortness 01/19/23 01/19/23 mcg-4.5 mcg/actuation aerosol Of Breath Or Wheezing inhaler (Symbicort) clonazepam 0.5 mg tablet 0.5 mg PO HS PRN Anxiety 01/19/23 01/19/23 diphenhydramine HCl 25 mg tablet See Rx Instructions .Route 01/19/23 01/19/23 .COMPLEX PRN Anxiety levothyroxine 50 mcg tablet 50 mcg PO DAILY 01/19/23 01/19/23 metoprolol tartrate 25 mg tablet 12.5 mg PO BID 01/19/23 01/19/23 olanzapine 20 mg tablet 20 mg PO HS 01/19/23 01/19/23 oxycodone-acetaminophen 5 mg-325 5 - 325 tablet PO TID PRN chronic 01/19/23 01/19/23 mg tablet pain pantoprazole 40 mg tablet,delayed 40 mg PO DAILY 01/19/23 01/19/23 release tizanidine 4 mg tablet 4 mg PO BID 01/19/23 01/19/23 zinc 50 mg tablet 50 mg PO DAILY 01/19/23 01/19/23 Allergies Allergy/AdvReac Type Severity Reaction Status Date / Time adhesive Allergy Mild RASH WITH Verified 01/20/23 07:40 BANDAIDS AND TAPE cyclobenzaprine Allergy Mild Unknown Verified 01/21/23 12:05 ketorolac Allergy Mild CHEST PAIN Verified 01/20/23 07:40 benzalkonium Allergy Unknown Unknown Verified 01/20/23 07:40 doxycycline Allergy Unknown Unknown Verified 01/19/23 12:42 Penicillins Allergy Unknown Unknown Verified 01/19/23 12:42 Sulfa (Sulfonamide Allergy Unknown Unknown Verified 01/19/23 12:42 Antibiotics) sulfanilamide Allergy Unknown Unknown Verified 01/19/23 12:42 tramadol Allergy Unknown Unknown Verified 01/20/23 07:40 Molds and Smuts Allergy Intermediate SNEEZING Uncoded 01/19/23 12:42 Egg Yolk Allergy Mild Unknown Uncoded 01/19/23 12:42 Review of Systems Review of Systems: All systems reviewed & are unremarkable except as noted in HPI and below PMFSH Past Medical History Medical History Anxiety Chronic anticoagulation Chronic back pain Chronic obstructive pulmonary disease Chronically on opiate therapy Hypothyroidism Pulmonary embolism Surgical History Surgical History History of bariatric surgery History of bunionectomy History of cholecystectomy History of open reduction and internal fixation (ORIF) procedure Repair left leg and right hip fractures. Family History Family History (Updated 01/19/23 @ 22:56 by Davina Luis PA-C) Other Family history non-contributory Social History Social History (Updated 01/19/23 @ 22:56 by Davina Luis PA-C) Social History: Surrogate medical decision maker: Alma Moya, daughter. Code status: Full code. Smoking status: Current every day smoker Alcohol intake: never Do You Feel Safe in your Home?: Yes Lack of Transportation: No Lack of Food: Never True Current Housing: I Have Housing Concerned About Future Housing: No Difficulty Paying Gas/Electric Bills: No Difficulty Paying for Meds: No Currently Unemployed: No Education: Decline to Answer Difficulty w/ Childcare or Family Care: Decline to Answer Spiritual care concerns: No Exam Narrative: APPEARANCE: Well appearing, no pain, no distress, well-nourished. HEAD: normocephalic, atraumatic. EYES: PERRLA/EOMI, conjunctivae clear. NOSE: Normal no drainage EARS:TMS clear with good light reflex. THROAT: Pharynx clear, no exudate. NECK: Supple. No adenopathy, no masses. RESPIRATORY: Airway patent, respirations
[2023-02-04 15:33] LABS: Appearance Urine Clear (Clear); Bacteria Urine None Seen /hpf; Bilirubin Urine Negative (Negative); Blood Urine Negative (Negative); Color Urine Dark Yellow (Yellow); Glucose Urine UA Negative (Negative); Ketones Urine Negative (Negative); Leukocyte Esterase Ur Negative LEU/UL (Negative); Need Manual Microscopic Reviewed; Nitrate Urine Positive (Negative); Non Pathogenic Casts 0-2; Protein Urine Negative (Negative); RBC Urine 0-2 /hpf (0-2); Specific Grav Ur 1.002 (1.001-1.035); Squamous Epithelial Cell Urine None seen /hpf (Few); Urobilinogen Urine 0.2 mg/dL (<2.0); WBC Urine 0-5 /hpf; pH Urine 6.5 (5.0-9.0)
[2023-02-04 15:38] LABS: Add Urine Microscopic? YES
[2023-02-04 16:01] LABS: Basophils Percent Auto 0.4 % (0.2-1.2); Eosinophils Absolute Auto 0.4 K/mm3 (0-0.3); Eosinophils Percent Auto 5.3 % (0-4.4); Hematocrit 36.7 % (37.0-47.0); Hemoglobin 10.2 g/dL (12.0-15.0); Immature Granulocyte Absolute 0.01 K/mm3 (0.00-0.031); Immature Granulocyte Percent A 0.1 % (0-0.5); Lymphocytes Absolute Auto 2.54 K/mm3 (0.9-3.2); Lymphocytes Percent Auto 31.9 % (18.3-44.2); Mean Corpuscular HGB Conc 27.8 g/dl (32-36); Mean Corpuscular Hemoglobin 26.6 pg (26-34); Mean Corpuscular Volume 95.8 fl (80-100); Mean Platelet Volume 10.1 fl (7.4-10.4); Monocytes Absolute Auto 0.7 K/mm3 (0.1-0.6); Monocytes Percent Auto 9.1 % (2.6-8.5); Neutrophils Absolute Auto 4.2 K/mm3 (1.3-6.7); Neutrophils Percent Auto 53.2 % (45.5-73.1); Platelet Count Result 266 k/mm3 (150-375); Red Blood Count 3.83 M/mm3 (4.2-5.4); Red Cell Distribution Width 17.5 % (11.5-14.5)
[2023-02-04 16:13] LABS: Alanine Aminotransferase 27 U/L (6-35); Albumin Level 2.9 g/dL (3.5-5.1); Alkaline Phosphatase 152 U/L (38-126); Anion Gap 3 mmol/L (8-16); Aspartate Amino Transferase 70 U/L (14-36); Bilirubin,Total 0.4 mg/dL (0.2-1.3); Blood Urea Nitrogen 4 mg/dL (7-17); Carbon Dioxide 33 mmol/L (22-30); Chloride 106 mmol/L (98-107); Estimated CRCL calculation 142 ml/min; Estimated Glomerular Filt Rate > 60; Glucose 110 mg/dL (65-110); Potassium 4.2 mmol/L (3.4-5.0); Sodium 142 mmol/L (137-145)
[2023-02-04 16:14] LABS: Platelet Estimate Adequate (Adequate)
[2023-02-04 16:15] LABS: Hypochromasia 1+ (NORMAL); Ovalocytes 1+ (NORMAL); Schistocytes None Seen (NORMAL)
== END 2023-02-04 18:20 | disposition home or self-care (01) ==
PROVIDERS: Emergency Provider Emergency Medicine
DX: R33.9 Retention of urine, unspecified (principal); J44.9 Chronic obstructive pulmonary disease, unspecified; E03.9 Hypothyroidism, unspecified; G89.29 Other chronic pain; M54.9 Dorsalgia, unspecified; F41.9 Anxiety disorder, unspecified; Z86.711 Personal history of pulmonary embolism; F17.200 Nicotine dependence, unspecified, uncomplicated; Z79.01 Long term (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 of anticoagulants; Z79.51 Long term (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 of inhaled steroids; Z79.891 Long term (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 of opiate analgesic
CPT/HCPCS: 36415; 51702; 80053; 81001; 85025; 99283

== ENCOUNTER 2023-02-19 15:49 | Emergency (ER) | payer MEDICARE, MEDICAID, SELFPAY ==
[2023-02-19] VITALS (7 sets, daily range): BP systolic 99–119; BP diastolic 64–68; PULSE 79–89; RESP 12–16; TEMP 36.9; O2SAT 92–96
--- NOTE | ~2023-02-19 | CT_ITS ---
Non-contrast CT scan of the Abdomen and Pelvis Clinical indication: Left flank pain Technique: 2.5 mm axial scans were obtained through the abdomen and pelvis without intravenous or or al contrast. Dose reduction technique was used on this scan by utilizing automated exposure control a nd iterative reconstruction technique. The dose-length product (DLP) was 1566.86 mGy-cm. Findings: Images through the lung bases reveal chronic right rib fracture deformities. There is no evidence of renal or ureteral calculi. The kidneys and the ureters are nondilated. The liver, spleen, pancreas, and adrenals appear normal. Cholecystectomy clips are present. There is no aortic aneurysm. Pelvic there is minimal amount of perihepatic and perisplenic ascites. There is no evidence of bowel obstruction. Images through the pelvis were performed. There is no evidence of ascites or lymphadenopathy. Urinary bladder collapsed around a Correa catheter. No pelvic mass seen. Impression: Minimal perihepatic and perisplenic ascites. No other acute abnormality. Correa catheter in place. Chronic right rib fracture deformities. Reviewed, dictated and finalized at [facility]. 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 No other acute abnormality. Correa catheter in place. Chronic right rib fracture deformities.
[2023-02-19 16:32] LABS: Basophils Percent Auto 0.3 % (0.2-1.2); Eosinophils Absolute Auto 0.6 K/mm3 (0-0.3); Eosinophils Percent Auto 5.2 % (0-4.4); Hematocrit 33.5 % (37.0-47.0); Hemoglobin 9.4 g/dL (12.0-15.0); Immature Granulocyte Absolute 0.03 K/mm3 (0.00-0.031); Immature Granulocyte Percent A 0.3 % (0-0.5); Lymphocytes Absolute Auto 3.47 K/mm3 (0.9-3.2); Lymphocytes Percent Auto 32.6 % (18.3-44.2); Mean Corpuscular HGB Conc 28.1 g/dl (32-36); Mean Corpuscular Hemoglobin 28.1 pg (26-34); Mean Platelet Volume 10.5 fl (7.4-10.4); Monocytes Absolute Auto 0.8 K/mm3 (0.1-0.6); Monocytes Percent Auto 7.6 % (2.6-8.5); Neutrophils Absolute Auto 5.7 K/mm3 (1.3-6.7); Platelet Count Result 194 k/mm3 (150-375); Red Blood Count 3.35 M/mm3 (4.2-5.4); Red Cell Distribution Width 22.2 % (11.5-14.5); White Blood Count 10.6 K/mm3 (4.5-10.0)
[2023-02-19 16:43] LABS: Anisocytosis 1+ (NORMAL); Hypochromasia 1+ (NORMAL); Platelet Estimate Adequate (Adequate)
[2023-02-19 16:44] LABS: Ovalocytes 1+ (NORMAL); Schistocytes None Seen (NORMAL)
[2023-02-19 16:45] LABS: Alanine Aminotransferase 27 U/L (6-35); Albumin Level 2.7 g/dL (3.5-5.1); Alkaline Phosphatase 141 U/L (38-126); Anion Gap 2 mmol/L (8-16); Aspartate Amino Transferase 71 U/L (14-36); Bilirubin,Total 0.8 mg/dL (0.2-1.3); Blood Urea Nitrogen 8 mg/dL (7-17); Calcium 8.4 mg/dL (8.4-10.2); Carbon Dioxide 33 mmol/L (22-30); Chloride 104 mmol/L (98-107); Estimated CRCL calculation 98 ml/min; Estimated Glomerular Filt Rate > 60; Glucose 107 mg/dL (65-110); Sodium 139 mmol/L (137-145)
[2023-02-19 17:01] LABS: Appearance Urine Cloudy (Clear); Bacteria Urine 4+ /hpf; Bilirubin Urine Negative (Negative); Blood Urine 2+ (Negative); Color Urine Dark Yellow (Yellow); Glucose Urine UA Negative (Negative); Ketones Urine Negative (Negative); Leukocyte Esterase Ur 3+ LEU/UL (Negative); Mucus Urine Present /lpf; Need Manual Microscopic Reviewed; Nitrate Urine Positive (Negative); Protein Urine Trace mg/dL (Negative); RBC Urine 0-2 /hpf (0-2); Specific Grav Ur 1.005 (1.001-1.035); Squamous Epithelial Cell Urine Occasional /hpf (Few); WBC Urine 51-100 /hpf
[2023-02-19 17:02] LABS: Add Urine Microscopic? YES
--- NOTE | 2023-02-19 17:16 | ED.BACK ---
HPI - Back Pain/Injury General Chief Complaint: Back Pain/Injury Stated Complaint: back/bladder pain History of Present Illness HPI Narrative: patient with history of UTI, urinary retention, with indwelling Correa catheter, presents here with suprapubic discomfort and left flank pain the last few days. No fevers/chills. Related Data Home Medications Medication Instructions Recorded Confirmed apixaban 5 mg tablet (Eliquis) 5 mg PO BID 01/19/23 01/19/23 budesonide-formoterol HFA 80 2 inh inhalation PRN PRN Shortness 01/19/23 01/19/23 mcg-4.5 mcg/actuation aerosol Of Breath Or Wheezing inhaler (Symbicort) clonazepam 0.5 mg tablet 0.5 mg PO HS PRN Anxiety 01/19/23 01/19/23 diphenhydramine HCl 25 mg tablet See Rx Instructions .Route 01/19/23 01/19/23 .COMPLEX PRN Anxiety levothyroxine 50 mcg tablet 50 mcg PO DAILY 01/19/23 01/19/23 metoprolol tartrate 25 mg tablet 12.5 mg PO BID 01/19/23 01/19/23 olanzapine 20 mg tablet 20 mg PO HS 01/19/23 01/19/23 oxycodone-acetaminophen 5 mg-325 5 - 325 tablet PO TID PRN chronic 01/19/23 01/19/23 mg tablet pain pantoprazole 40 mg tablet,delayed 40 mg PO DAILY 01/19/23 01/19/23 release tizanidine 4 mg tablet 4 mg PO BID 01/19/23 01/19/23 zinc 50 mg tablet 50 mg PO DAILY 01/19/23 01/19/23 Allergies Allergy/AdvReac Type Severity Reaction Status Date / Time adhesive Allergy Mild RASH WITH Verified 02/19/23 16:00 BANDAIDS AND TAPE cyclobenzaprine Allergy Mild Unknown Verified 02/19/23 16:00 ketorolac Allergy Mild CHEST PAIN Verified 02/19/23 16:00 benzalkonium Allergy Unknown Unknown Verified 02/19/23 16:00 doxycycline Allergy Unknown Unknown Verified 02/19/23 16:00 Penicillins Allergy Unknown Unknown Verified 02/19/23 16:00 Sulfa (Sulfonamide Allergy Unknown Unknown Verified 02/19/23 16:00 Antibiotics) sulfanilamide Allergy Unknown Unknown Verified 02/19/23 16:00 tramadol Allergy Unknown Unknown Verified 02/19/23 16:00 Molds and Smuts Allergy Intermediate SNEEZING Uncoded 02/19/23 16:00 Egg Yolk Allergy Mild Unknown Uncoded 02/19/23 16:00 Review of Systems Review of Systems: CONST: No fever. HEENT: No sore throat C/V: No chest pain RESP: No cough GI: Reports abdominal pain and left flank pain : dysuria with left flank pain M/S: No joint pain. SKIN: No rash. NEURO: [No headache or focal numbness or weakness] PSYCH: [No depression] [facility] Past Medical History Medical History Anxiety Chronic anticoagulation Chronic back pain Chronic obstructive pulmonary disease Chronically on opiate therapy Hypothyroidism Pulmonary embolism Surgical History Surgical History History of bariatric surgery History of bunionectomy History of cholecystectomy History of open reduction and internal fixation (ORIF) procedure Repair left leg and right hip fractures. Family History Family History (Updated 01/19/23 @ 22:56 by Davina Luis PA-C) Other Family history non-contributory Social History Social History (Updated 01/19/23 @ 22:56 by Davina Luis PA-C) Social History: Surrogate medical decision maker: Alma Moya, daughter. Code status: Full code. Smoking status: Current every day smoker Alcohol intake: never Do You Feel Safe in your Home?: Yes Lack of Transportation: No Lack of Food: Never True Current Housing: I Have Housing Concerned About Future Housing: No Difficulty Paying Gas/Electric Bills: No Difficulty Paying for Meds: No Currently Unemployed: No Education: Decline to Answer Difficulty w/ Childcare or Family Care: Decline to Answer Spiritual care concerns: No Exam Narrative: EXAMINATION OF ORGAN SYSTEMS/BODY AREAS: Constitutional: Vital signs per nursing GENERAL:[No acute distress, non-toxic appearing.] morbidly obese (BMI 70). HEAD: Normal with no signs of head trauma. EYES:
[2023-02-19] MEDS: cefTRIAXone 2 GM/NS 100 ML 2 GM/100 ML BAG IVPB (17:29)
== END 2023-02-19 18:30 | disposition home or self-care (01) ==
PROVIDERS: Emergency Provider Emergency Medicine
DX: J44.9 Chronic obstructive pulmonary disease, unspecified (principal); E03.9 Hypothyroidism, unspecified; F17.200 Nicotine dependence, unspecified, uncomplicated; Z98.84 Bariatric surgery status; Z86.711 Personal history of pulmonary embolism; Z90.49 Acquired absence of other specified parts of digestive tract; Z79.01 Long term (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 of anticoagulants; N39.0 Urinary tract infection, site not specified
CPT/HCPCS: 36415; 74176; 80053; 81001; 85025; 87077; 87086; 87088; 87186; 96365; 99284; J0696

== ENCOUNTER 2023-02-23 12:11 | Emergency (ER) | payer MEDICARE, MEDICAID, SELFPAY ==
[2023-02-23] VITALS (34 sets, daily range): BP systolic 90–110; BP diastolic 49–77; PULSE 69–113; RESP 10–24; TEMP 36.7; O2SAT 90–97
--- NOTE | 2023-02-23 14:28 | ED.FEMALEGU ---
HPI - Female Genitourinary General Chief complaint: Urogenital-Female Stated complaint: urine culture Time Seen by Provider: 02/23/23 13:31 History of Present Illness HPI Narrative: Patient is a 62-year-old female presenting with a positive urine culture. Patient was seen here last month with urinary retention. A Correa catheter was placed. She was then seen a couple of weeks ago and diagnosed with the UTI. She was started on cefpodoxime and then she received a call from her PCP that she needs to come to the ER to get vancomycin. she denies any complaints other than mild irritation from the Correa catheter. States that she has an appointment with Urology coming up. She denies abdominal pain, nausea vomiting or fevers. No complaints other than wanting to go home. Related Data Home Medications Medication Instructions Recorded Confirmed apixaban 5 mg tablet (Eliquis) 5 mg PO BID 01/19/23 01/19/23 budesonide-formoterol HFA 80 2 inh inhalation PRN PRN Shortness 01/19/23 01/19/23 mcg-4.5 mcg/actuation aerosol Of Breath Or Wheezing inhaler (Symbicort) clonazepam 0.5 mg tablet 0.5 mg PO HS PRN Anxiety 01/19/23 01/19/23 diphenhydramine HCl 25 mg tablet See Rx Instructions .Route 01/19/23 01/19/23 .COMPLEX PRN Anxiety levothyroxine 50 mcg tablet 50 mcg PO DAILY 01/19/23 01/19/23 metoprolol tartrate 25 mg tablet 12.5 mg PO BID 01/19/23 01/19/23 olanzapine 20 mg tablet 20 mg PO HS 01/19/23 01/19/23 oxycodone-acetaminophen 5 mg-325 5 - 325 tablet PO TID PRN chronic 01/19/23 01/19/23 mg tablet pain pantoprazole 40 mg tablet,delayed 40 mg PO DAILY 01/19/23 01/19/23 release tizanidine 4 mg tablet 4 mg PO BID 01/19/23 01/19/23 zinc 50 mg tablet 50 mg PO DAILY 01/19/23 01/19/23 Allergies Allergy/AdvReac Type Severity Reaction Status Date / Time adhesive Allergy Mild RASH WITH Verified 02/19/23 16:00 BANDAIDS AND TAPE cyclobenzaprine Allergy Mild Unknown Verified 02/19/23 16:00 ketorolac Allergy Mild CHEST PAIN Verified 02/19/23 16:00 benzalkonium Allergy Unknown Unknown Verified 02/19/23 16:00 doxycycline Allergy Unknown Unknown Verified 02/19/23 16:00 Penicillins Allergy Unknown Unknown Verified 02/19/23 16:00 Sulfa (Sulfonamide Allergy Unknown Unknown Verified 02/19/23 16:00 Antibiotics) sulfanilamide Allergy Unknown Unknown Verified 02/19/23 16:00 tramadol Allergy Unknown Unknown Verified 02/19/23 16:00 Molds and Smuts Allergy Intermediate SNEEZING Uncoded 02/19/23 16:00 Egg Yolk Allergy Mild Unknown Uncoded 02/19/23 16:00 Review of Systems Review of Systems: All systems reviewed & are unremarkable except as noted in HPI and below PMFSH Past Medical History Medical History Anxiety Chronic anticoagulation Chronic back pain Chronic obstructive pulmonary disease Chronically on opiate therapy Hypothyroidism Pulmonary embolism Surgical History Surgical History History of bariatric surgery History of bunionectomy History of cholecystectomy History of open reduction and internal fixation (ORIF) procedure Repair left leg and right hip fractures. Family History Family History Other Family history non-contributory Social History Social History Social History: Surrogate medical decision maker: Alma Moya, daughter. Code status: Full code. Smoking status: Current every day smoker Alcohol intake: never Do You Feel Safe in your Home?: Yes Lack of Transportation: No Lack of Food: Never True Current Housing: I Have Housing Concerned About Future Housing: No Difficulty Paying Gas/Electric Bills: No Difficulty Paying for Meds: No Currently Unemployed: No Education: Decline to Answer Difficulty w/ Childcare or Family Care: Decline to Answer Spirit
[2023-02-23] MEDS: NITROFURANTOIN MONOHYD MACROCR 100 MG CAP PO (15:35)
[2023-02-23] MEDS: HYDROcodone/acetaminophen (*CRX) 5-325 MG TABLET 1 TAB PO (16:41)
--- NOTE | 2023-02-23 16:42 | PC.NURSE ---
called dietary @[id number] for meal tray while pt waits for a ride.
== END 2023-02-23 18:39 | disposition home or self-care (01) ==
PROVIDERS: Emergency Provider Emergency Medicine
DX: N39.0 Urinary tract infection, site not specified (principal); B96.20 Unspecified Escherichia coli [E. coli] as the cause of diseases classified elsewhere; B95.2 Enterococcus as the cause of diseases classified elsewhere; Z16.21 Resistance to vancomycin; Z96.0 Presence of urogenital implants; J44.9 Chronic obstructive pulmonary disease, unspecified; E03.9 Hypothyroidism, unspecified; F41.9 Anxiety disorder, unspecified; F17.200 Nicotine dependence, unspecified, uncomplicated; Z98.84 Bariatric surgery status; Z86.711 Personal history of pulmonary embolism; Z90.49 Acquired absence of other specified parts of digestive tract; Z79.01 Long term (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 of anticoagulants
CPT/HCPCS: 99283; A9270